=== PATIENT | male | born 2000 | race Two or more races ===

== ENCOUNTER 2021-08-08 16:35 | Emergency (ER) | payer OTHER, BC ==
[~2021-08-08] VITALS: Ht 190.5 cm; Wt 96.9 kg
[2021-08-08] MEDS ORDERED: IBUPROFEN 800 MG TAB PO ONE (18:35)
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
[2021-08-08 20:09] VITALS: BP 125/74
== END 2021-08-08 20:12 | disposition home or self-care (01) ==
LOC: M ED 16:35
DX: S16.1XXA Strain of muscle, fascia and tendon at neck level, initial encounter (principal); S90.812A Abrasion, left foot, initial encounter; M54.50 Low back pain, unspecified; V43.52XA Car driver injured in collision with other type car in traffic accident, initial encounter; Y92.9 Unspecified place or not applicable; Y93.9 Activity, unspecified; Y99.9 Unspecified external cause status

== ENCOUNTER 2021-11-08 15:42 | Emergency (ER) | payer OTHER, BC ==
[~2021-11-08] VITALS: Ht 190.5 cm; Wt 95.4 kg
[2021-11-08] MEDS ORDERED: guaiFENesin/CODEINE SYRUP 5 ML UDC PO ONE (20:05)
[2021-11-08] MEDS ORDERED: ACETAMINOPHEN TAB 650MG DOSE (2X325MG) PO ONE (20:05)
[2021-11-08] MEDS ORDERED: ONDANSETRON 4 MG ORAL DISINTEGRATING TAB PO ONE (20:15)
[2021-11-08] MEDS ORDERED: TUSS1CAP5 PO (20:35)
[2021-11-08] MEDS ORDERED: ONDA4TAB6 PO (20:35)
[2021-11-08 20:45] VITALS: BP 124/67
== END 2021-11-08 20:56 | disposition home or self-care (01) ==
LOC: M ED 15:42
DX: B34.9 Viral infection, unspecified (principal)
CPT/HCPCS: 99283; Q0162; U0003

== ENCOUNTER 2023-01-01 05:57 | Emergency (ER) | payer BC, OTHER ==
[~2023-01-01] VITALS: Ht 188 cm; Wt 100.0 kg
[~2023-01-01 05:57] MED LIST: ONDA4TAB6 PO; TUSS1CAP5 PO
[2023-01-01] MEDS ORDERED: KETOROLAC 30 MG/ML 1ML VIAL IV ONE (08:20)
[2023-01-01 09:13] LABS: GC DNA AMPLIFICATION NEGATIVE (NEGATIVE)
[2023-01-01] MEDS ORDERED: DOXY100C81 PO (09:40)
[2023-01-01 09:48] VITALS: BP 139/80
== END 2023-01-01 09:52 | disposition home or self-care (01) ==
LOC: M ED 05:57
DX: A74.9 Chlamydial infection, unspecified (principal)

== ENCOUNTER 2024-05-31 23:24 | Emergency (ER) | payer OTHER ==
[~2024-05-31] VITALS: Ht 188 cm; Wt 110.2 kg
[~2024-05-31 23:24] MED LIST changes: +DOXY100C82 PO; +ONDA-282 PO; -ONDA4TAB6 PO
[2024-06-01] MEDS ORDERED: DAPS25TA PO (06:01)
[2024-06-01] MEDS ORDERED: PILL CUTTER 1 EACH XX PRN (06:45)
[2024-06-01 06:54] VITALS: BP 129/68; TEMP 98.3; O2SAT 99
[2024-06-01] MEDS: DAPSONE 100 MG TAB PO STA (06:54)
== END 2024-06-01 06:57 | disposition home or self-care (01) ==
LOC: M ED 23:24
DX: L13.0 Dermatitis herpetiformis (principal)